=== PATIENT | female | born 1950 | race Caucasian/White ===

== ENCOUNTER 2016-05-14 05:14 | Inpatient (IN) | payer OTHER ==
--- NOTE | 2016-04-22 13:50 | PAT Medication Instructions ---
Service Date Apr 22, 2016. Current Home Medication List Aspirin (Aspirin Ec), 81 MG PO BID Cholecalciferol (Vitamin D3), 1 TAB PO QAM Hydrocodone/Acetaminophen 7.5MG/325MG ([place] 7.5MG/325MG), 1 TAB PO Q8 PRN for Pain Lorazepam (Ativan), 1 MG PO TID PRN Multivitamin (Multivitamin), 1 TAB PO QAM Prednisone (Prednisone), 20 MG PO UD Sumatriptan Succinate (Imitrex), 100 MG PO PRN Medication Instructions For Your Scheduled Surgery - Check surgeon's instructions: Aspirin (Aspirin Ec), 81 MG PO BID - Hold the following medications the morning of surgery: Multivitamin (Multivitamin), 1 TAB PO QAM Cholecalciferol (Vitamin D3), 1 TAB PO QAM - Take the following medications the morning of surgery with a sip of water OTHERWISE NOTHING TO EAT OR DRINK AFTER MIDNIGHT: Prednisone (Prednisone), 20 MG PO UD NEEDED Sumatriptan Succinate (Imitrex), 100 MG PO NEEDED Lorazepam (Ativan), 1 MG PO TID NEEDED Hydrocodone/Acetaminophen 7.5MG/325MG ([place] 7.5MG/325MG), 1 TAB PO Q8 PRN for Pain (may take if needed up to 4 hours prior to surgery) - Take the following medications as scheduled the night before surgery: Lorazepam (Ativan), 1 MG PO TID PRN NEEDED If you have any questions please call us at [phone] (Anastasiya Nunez PA-C ) or [phone] or [phone]
[2016-04-22 14:40] LABS: PROTHROMBIN TIME (PATIENT) 10.6 SECONDS (9.0-12.0)
--- NOTE | 2016-04-22 14:41 | DIAGNOSTIC IMAGING REPORT ---
CHEST 2 VIEWS ROUTINE HISTORY: Preop. COMPARISON: Chest 11/10/2012. FINDINGS: The lungs are clear. Cardiac silhouette is normal in size. No pleural effusions. No pneumothorax. IMPRESSION: No acute process. Electronically signed by: Woody Fox M.D. 04/22/2016 2:40 PM
[2016-04-22 14:59] LABS: MANUAL MICROSCOPIC REQUIRED? NO; REVIEW REQ? NO; URINE APPEARANCE CLEAR (CLEAR); URINE BILIRUBIN NEG (NEG); URINE COLOR YELLOW; URINE EPITHELIAL CELL AUTO >30 /lpf (0-5); URINE NITRITE NEG (NEG); URINE PH 5.5 (4.5-7.5); UROBILINOGEN NEG (NEG); ZZUR CULT IF INDIC CLEAN CATCH NO
--- NOTE | 2016-05-11 10:00 | HISTORY & PHYSICAL EXAMINATION ---
DATE OF ADMISSION: 05/14/2016 CHIEF COMPLAINT: Painful bicompartmental knee replacement. HISTORY OF PRESENT ILLNESS: Ms. Varela is a 65-year-old female who had a bicompartmental knee replacement in 2010. The patient has been having increased pain in the knee over the last 2 years. Recent bone scan is positive for loosening of her components. She has been taking Advil and has had injections without relief. She has failed conservative treatment and is now scheduled for conversion to total knee arthroplasty. PAST MEDICAL HISTORY: Negative. She denies heart disease, diabetes or DVT. PAST SURGICAL HISTORY: Left bicompartmental knee replacement. SOCIAL HISTORY: The patient denies alcohol or tobacco use. She lives in a single story home. She is and works part-time at [employer]. FAMILY HISTORY: Negative for DVT. MEDICATIONS: Imitrex 100 mg p.r.n., lorazepam 1 mg p.r.n., prednisone 20 mg p.r.n., hydrocodone 7.5/325, multivitamin and vitamin D3. ALLERGIES: None. REVIEW OF SYSTEMS: See HPI. Ten other systems reviewed, all negative. PHYSICAL EXAMINATION: VITAL SIGNS: Height 4 foot 11, weight 152 pounds, BMI 31. GENERAL: This is a well-developed, well-nourished female who is alert and oriented x3. Mood and affect are appropriate. HEAD, EYES, EARS, NOSE, AND THROAT: Normocephalic, atraumatic. Mucous membranes are moist and intact. NECK: Supple without lymphadenopathy. HEART: Regular rate and rhythm without murmurs, rubs or gallops. LUNGS: Clear to auscultation without wheezes or rhonchi. ABDOMEN: Soft and nontender. Bowel sounds are equal and active. EXTREMITIES: No ecchymosis, redness or warmth. She does have mild effusion. She has a midline incision that is well healed. Range of motion is from 0 to about 115 degrees. She has no instability. She has lateral joint line tenderness. X-RAY EXAMINATION: AP and lateral views show a left bicompartmental knee replacement in adequate position on x-ray. Her components appear to be well fixed. She does have evidence of some lateral compartment disease. IMPRESSION: History of left bicompartmental knee replacement with evidence of lateral compartment disease. PLAN: The patient will be admitted for revision to left total knee arthroplasty with possible stem. Will plan on aspirin for DVT prophylaxis. The patient is planning on outpatient physical therapy a [facility]. Her PCP is Dr. Elyse Mccarthy, [facility].
[2016-05-14] VITALS (9 sets, daily range): BP systolic 112–167; BP diastolic 66–100; PULSE 71–94; TEMP 36.4–36.9; O2SAT 93–99; Ht 152.4 cm; Wt 69.7 kg
[~2016-05-14] VITALS: Ht 152.4 cm; Wt 69.7 kg
[~2016-05-14 05:14] MED LIST: ASPI81TA28 PO; ATV/1 PO; CHOL1000 PO; HYDR-3983 PO; MULT-506 PO; PRED20TA PO; SUMA100T16 PO
[2016-05-14] MEDS ORDERED: OXYCODONE HCL 10 MG TABCR (OXYCONTIN) PO SCH ×2 (06:00)
[2016-05-14] MEDS ORDERED: LACTATED RINGER'S 500 ML IV SCH (06:00)
[2016-05-14] MEDS ORDERED: SCOPOLAMINE 1.5 MG TDSY TD SCH (06:00)
[2016-05-14] MEDS ORDERED: FAMOTIDINE 20 MG TAB PO SCH (06:00)
[2016-05-14] MEDS ORDERED: POLYMYXIN B SULFATE 100,000 UNITS in NSS 100ML IR SCH (06:00)
[2016-05-14] MEDS ORDERED: LACTATED RINGER'S 1000ML IV SCH ×2 (06:00)
[2016-05-14] MEDS ORDERED: GABAPENTIN 300 MG CAP PO SCH (06:00)
[2016-05-14] MEDS ORDERED: VANCOMYCIN INJ 1,050 MG in SODIUM CHLORIDE 0.9% 250ML 250 ML IV SCH (06:00)
[2016-05-14] MEDS ORDERED: VANCOMYCIN INJ 400 MG in NSS 100ML IR SCH (06:00)
[2016-05-14] MEDS ORDERED: METOCLOPRAMIDE HCL 10 MG TAB PO SCH (06:00)
[2016-05-14] MEDS ORDERED: ROPIVACAINE 5MG/ML 30 ML 150 MG, BUPIVACAINE/EPINEPHR 0.5% MPF 30 ML, KETOROLAC TROMETH... INFIL SCH ×7 (06:00)
[2016-05-14] MEDS ORDERED: ACETAMINOPHEN 500 MG TAB PO SCH (06:00)
[2016-05-14] MEDS ORDERED: CeleBREX 200 MG CAP PO SCH (06:00)
[2016-05-14] MEDS ORDERED: CEFAZOLIN 2000 MG/60 ML D5W 60 ML IV SCH (06:00)
[2016-05-14] MEDS ORDERED: DEXAMETHASONE 4 MG TAB PO SCH (06:00)
[2016-05-14] MEDS ORDERED: VANCOMYCIN 1GM/270ML NSS 270 ML IV SCH (06:00)
[2016-05-14] MEDS ORDERED: BUPIVACAINE 0.5 % 5 MG/1 ML PF 10ML VIAL ONE (06:28)
[2016-05-14] MEDS: TRANEXAMIC ACID INJ 1,000 MG in SODIUM CHLORIDE 0.9% 100ML 100 ML IV SCH ×2 (06:30→06:41)
--- NOTE | 2016-05-14 06:37 | History & Physical Bridge Note ---
H&P Re-Evaluation Bridge Note: I have examined the patient, reviewed the History & Physical and in the interval since the performance of the History & Physical I have noted the following changes of clinical significance: No changes noted
[2016-05-14] MEDS ORDERED: FENTANYL CITRATE INJ 50 MCG/1 ML 2 ML VIAL ONE (06:42)
[2016-05-14] MEDS ORDERED: MIDAZOLAM HCL 1 MG/ML 2ML VIAL ONE ×2 (06:42→07:08)
[2016-05-14] MEDS ORDERED: FENTANYL CITRATE INJ 50 MCG/1 ML 2 ML VIAL IV PRN (06:45)
[2016-05-14] MEDS ORDERED: EpHEDrine SULFATE INJ 50 MG/ML AMP IV PRN (06:45)
[2016-05-14] MEDS ORDERED: ATROPINE SULFATE 0.1 MG/ML 5ML SYR IV PRN (06:45)
[2016-05-14] MEDS ORDERED: ONDANSETRON INJ 2 MG/ML 2 ML VIAL IV PRN ×2 (06:45→09:00)
[2016-05-14] MEDS ORDERED: ORTHO JOINT ANESTHETIC ONE (06:47)
[2016-05-14] MEDS ORDERED: LABETALOL HCL IV 5 MG/ML 20ML ONE (07:52)
[2016-05-14] MEDS ORDERED: PROPOFOL IV EMULSION 10 MG/ML 20 ML VIAL IV ONE ×2 (07:52→08:23)
[2016-05-14] MEDS ORDERED: BACITRACIN 50000 UNIT VIAL IR ONE (07:53)
[2016-05-14] MEDS ORDERED: BUPIVACAINE 0.25% W/EPI 1:200,000 INJ ONE (07:57)
--- NOTE | 2016-05-14 08:46 | [facility] Post Operative Brief Note ---
Immediate Operative Summary Operative Date May 14, 2016. Pre-Operative Diagnosis History of Left Bicompartmental Knee Replacement with Evidence of Lateral Compartment Disease Post-Operative Diagnosis History of Left Bicompartmental Knee Replacement with Evidence of Lateral Compartment Disease Procedure(s) Performed Left Knee Total Knee Revision Arthroplasty from Unicompartmental, Injection of Right Knee Surgeon Dr. Bruce Chaudhary Medical Stenographer Surgeon(s) WILL Haley Estimated Blood Loss 50 ml Findings lat disease Specimens A. Removed Hardware Left Knee B. Left Knee Bone and Tissue Complication(s) None Disposition Recovery Room / PACU
[2016-05-14] MEDS ORDERED: POVIDONE-IODINE OP SOLN 30 ML BTL TOP ONE (08:48)
[2016-05-14] MEDS ORDERED: METHYLPREDNISOLONE (DEPO-MEDROL) 80MG INJ ONE (08:53)
[2016-05-14] MEDS ORDERED: LIDOCAINE HCL 1% MPF 5 ML VIAL INJ ONE (08:58)
[2016-05-14] MEDS: ASPIRIN 81 MG ECTAB PO SCH ×2 (09:00→20:28)
[2016-05-14] MEDS ORDERED: OXYCODONE HCL IR 5 MG TAB (IMMEDIATE RELEASE) PO PRN (09:00)
[2016-05-14] MEDS ORDERED: DiphenhydrAMINE HCL 50 MG/ML VIAL IV PRN (09:00)
[2016-05-14] MEDS: MULTIVITAMIN TAB PO SCH (09:00)
[2016-05-14] MEDS ORDERED: LORAZEPAM 1 MG TAB PO PRN (09:00)
[2016-05-14] MEDS: CHOLECALCIFEROL 1000 INTER.UNIT TAB PO SCH (09:00)
[2016-05-14] MEDS ORDERED: ALUMINUM/MAGNESIUM/SIMETH (MAALOX MAX) 30 ML UDC PO PRN (09:00)
[2016-05-14] MEDS ORDERED: SOD PHOSPHATE/SOD BIPHOSPHATE ENEMA 132 ML BTL PR PRN (09:00)
[2016-05-14] MEDS ORDERED: ZOLPIDEM TARTRATE 5 MG TAB PO PRN (09:00)
[2016-05-14] MEDS ORDERED: METOCLOPRAMIDE HCL INJ 5 MG/ML 2 ML VIAL IV PRN (09:00)
[2016-05-14] MEDS ORDERED: MAGNESIUM HYDROXIDE SUSP 30 ML UDC PO PRN (09:00)
[2016-05-14] MEDS: PANTOprazole SOD 40 MG TAB PO SCH (09:00)
[2016-05-14] MEDS ORDERED: TRAMADOL HCL 50 MG TAB PO PRN (09:00)
[2016-05-14] MEDS ORDERED: MoRPHine SULFATE 2 MG/ML CARP IV PRN (09:00)
[2016-05-14] MEDS ORDERED: BISACODYL 10 MG SUPP PR PRN (09:00)
[2016-05-14] MEDS ORDERED: SUMATRIPTAN SUCC TAB 100 MG TAB PO PRN (09:00)
--- NOTE | 2016-05-14 09:59 | DIAGNOSTIC IMAGING REPORT ---
LEFT KNEE 1 OR 2 VIEWS ROUTINE CLINICAL HISTORY: Postop left knee arthroplasty COMPARISON: None. DISCUSSION: There are postsurgical changes of a total left knee arthroplasty and patellar resurfacing. Overlying surgical drains are evident. The femoral and tibial components appear well seated. There is granular opaque debris within the anterior soft tissues. IMPRESSION: Postsurgical changes of a total left knee arthroplasty. Electronically signed by: Portillo Huggins M.D. 05/14/2016 9:58 AM Dictated Date/Time: 05/14/2016 9:57 AM
--- NOTE | 2016-05-14 10:13 | Anesthesiology Progress Note ---
Anesthesia Post Op Note Date & Time May 14, 2016 at 10:12 Vital Signs Pain Intensity: 0 Vital Signs Past 12 Hours Date Time Temp Pulse Resp B/P Pulse Ox O2 Delivery O2 Flow Rate FiO2 05/14/16 10:00 36.4 74 14 135/75 98 Nasal Cannula 2 05/14/16 09:45 71 13 143/83 98 Nasal Cannula 2 05/14/16 09:35 65 13 128/78 98 Nasal Cannula 2 05/14/16 09:25 69 21 128/70 99 Nasal Cannula 2 05/14/16 09:15 36.2 62 12 132/92 98 Nasal Cannula 2 05/14/16 06:03 36.7 71 16 167/100 99 Room Air Notes Mental Status: alert / awake / arousable, participated in evaluation Pt Amnestic to Procedure: Yes Nausea / Vomiting: adequately controlled Pain: adequately controlled Airway Patency, RR, SpO2: stable & adequate BP & HR: stable & adequate Hydration State: stable & adequate Neuraxial Anesthesia: was administered, sensory block is resolving Anesthetic Complications: no major complications apparent
--- NOTE | 2016-05-14 12:32 | OPERATIVE REPORT ---
DATE OF OPERATION: 05/14/2016 PREOPERATIVE DIAGNOSES: 1. Painful left bicompartmental total knee replacement. 2. Degenerative arthritis of the right knee. PROCEDURES: 1. Left revision knee replacement. 2. Intra-articular injection, right knee. SURGEON: Manny Chaudhary MD FOOD SERVICE TEAM MEMBER: WILL Haley ANESTHESIA: Spinal. BLOOD LOSS: 50 mL. TOURNIQUET TIME: 20 minutes at 250 mmHg. DRAINS: Hemovac x2. CULTURES: None. COMPLICATIONS: None. COMPONENTS USED: [employer]hew Journey Knee System: Femur size 3, tibia size 3 x 13. NOTE: WILL Haley was present and assisted throughout due to the complicated nature of this case. She helped with preparation and set up, first assisted throughout, and personally closed the capsule, subcutaneous and skin layers and applied the postoperative dressing. INDICATION FOR PROCEDURE: This patient is a 65-year-old woman who is about 6-7 years status post uncomplicated bicompartmental knee replacement. She had done well, but had developed lateral compartment disease and also some tibial pain. A bone scan suggested loosening of tibial component. She has tried injections without relief. Preoperative workup including aspiration was negative and inflammatory markers were negative. DESCRIPTION OF PROCEDURE: Following satisfactory spinal, the patient was supine. A tourniquet was placed on the left lower extremity. The left lower extremity was prepared with ChloraPrep and draped sterilely. The tourniquet was not inflated. A surgical timeout was performed. Using the old midline knee incision, a midline incision was made with a median parapatellar arthrotomy. Hemostasis was controlled using the Aquamantys system. The knee showed a moderate amount of fluid. There was grade 3-4 changes of the lateral compartment. The components did not appear to be loose and the patella tracked well. The femoral component was removed using the ultrasonic cement removal system with essentially no bone loss. The IM 5-degree valgus cut was then used to trim and shape the femur. The femur was sized and prepared for a size 3 posterior stabilized femoral component. There was very good preservation of bone and it was decided that no stem placement would be necessary. Attention was turned to the tibia. Using the extramedullary cutting guide, the tibia was resected with approximately 3-degrees posterior slope and 90-degrees mediolateral resection. There was minimal residual tibial medial bone loss. Tibial trial component was placed. Soft tissue balancing was completed in flexion and extension. The patella appeared to be in very good shape. There was no loosening and it did not require any other treatment. The trial reduction with the above-mentioned components showed full extension and flexion to more than 120 degrees with very good medial collateral lateral stability and the patella tracked well. The tourniquet was inflated for better cement technique. The trial components were removed. The capsule was prepared with the orthopedic cocktail and after irrigation, the components were cemented using Simplex G cement. Betadine soak was performed. When the cement had hardened, the Betadine was irrigated and the tourniquet was deflated. The wound was irrigated copiously. Two drains were placed. The arthrotomy was closed with a running suture of 0 V-Loc and reinforced in multiple sites with #1 Vicryl. Subcutaneous tissues were closed with 2-0 Vicryl. The skin was closed with a running subcuticular stitch of 3-0 V-Loc. Dermabond and a dry dressing was applied. A second time-out was then performed. The right knee was injected in the inferomedial portal after Betadine and alcohol preparation using 80 mg of Depo-Medrol and 4 mL of 1% lidocaine. A dry dressing was applied. The patient was returned to her bed having tolerated the procedure in good condition. I attest to the content of the Intraoperative Record and any orders documented therein. Any exceptio ns are noted below.
[2016-05-14] MEDS: ACETAMINOPHEN 500 MG TAB PO SCH ×2 (13:21→20:28)
[2016-05-14] MEDS: KETOROLAC TROMETHAMINE 30 MG/ML VIAL IV. SCH ×3 (13:21→23:37)
[2016-05-14] MEDS: D5W AND 1/2NSS + 20MEQ KCL 1,000 ML IV SCH ×2 (13:21→23:36)
[2016-05-14] MEDS: CHECK SCOPOLAMINE PATCH PLACEMENT SCH ×2 (16:00→23:37)
[2016-05-14] MEDS ORDERED: TRANEXAMIC ACID INJ 1,000 MG in SODIUM CHLORIDE 0.9% 100ML 100 ML IV SCH (16:00)
[2016-05-14] MEDS: CEFAZOLIN IV 2,000 MG in DEXTROSE 5% 50ML 50 ML IV SCH ×2 (18:07→23:36)
[2016-05-14] MEDS: OXYCODONE HCL 10 MG TABCR (OXYCONTIN) PO SCH (20:30)
[2016-05-14] MEDS ORDERED: SENNA 8.6 MG TAB PO SCH (21:00)
[2016-05-15 03:05] VITALS: BP 131/77; PULSE 69; TEMP 36.7; O2SAT 97
[2016-05-15] MEDS: ACETAMINOPHEN 500 MG TAB PO SCH (05:56)
[2016-05-15] MEDS: KETOROLAC TROMETHAMINE 30 MG/ML VIAL IV. SCH (05:57)
[2016-05-15] MEDS ORDERED: LACTATED RINGER'S 500 ML IV SCH (06:00)
--- NOTE | 2016-05-15 07:32 | Orthopedic Progress Note ---
Orthopedic Progress Note Date of Service May 15, 2016. Subjective Post OP Day: 1 Reports: feeling well, pain controlled w PO medications, Denies: SOB, chest pain , complaints, light headedness, nausea / vomiting Objective calves soft nontender, N/V intact, dressing C/D/I, A&O x3, toes mobile, hemovac drainage (225 LAST SHIFT ) Date Time Temp Pulse Resp B/P Pulse Ox O2 Delivery O2 Flow Rate FiO2 05/15/16 03:05 36.7 69 18 131/77 97 Room Air 05/14/16 23:28 36.7 77 16 117/70 93 Room Air 05/14/16 20:00 Room Air 05/14/16 19:39 36.9 87 17 116/73 94 Room Air 05/14/16 15:56 36.9 94 17 114/76 96 Room Air 05/14/16 13:13 36.9 85 16 119/72 97 Room Air 05/14/16 12:10 36.4 83 16 112/66 96 Nasal Cannula 2.0 05/14/16 11:07 74 16 124/74 98 Room Air 05/14/16 10:40 72 16 128/77 96 05/14/16 10:10 97 Room Air 05/14/16 10:10 36.4 74 16 139/80 97 Room Air 05/14/16 10:10 Room Air 05/14/16 10:00 36.4 74 14 135/75 98 Nasal Cannula 2 05/14/16 09:45 71 13 143/83 98 Nasal Cannula 2 05/14/16 09:35 65 13 128/78 98 Nasal Cannula 2 05/14/16 09:25 69 21 128/70 99 Nasal Cannula 2 05/14/16 09:15 36.2 62 12 132/92 98 Nasal Cannula 2 Laboratory Results 24 Hours: Test 05/15/16 04:44 Assessment & Plan Assessment: POD 1 L REVISION TKA Plan: DC TODAY LEAVE DRAIN IN PLACE OPPT WILL DC DRAIN TOMORROW Inhouse Planning Pain Management: Celebrex, Oxycontin, PO Tylenol, Oxy IR DVT Prophylaxis: TEDs, SCDs, ASA Discharge Planning Discharge Planning: home with oppt Pain Management: Celebrex, Oxycontin, PO Tylenol, Oxy IR DVT Prophylaxis: TEDs, ASA
[2016-05-15 07:36] LABS: HEMATOCRIT 34.1 % (37-47); MEAN CELL VOLUME 85.7 fL (80-100); MEAN CORPUSCULAR HEMOGLOBIN 28.6 pg (25-34); MEAN CORPUSCULAR HGB CONC 33.4 g/dl (32-36); MEAN PLATELET VOLUME 10.8 fL (7.4-10.4); PLATELET COUNT 205 K/uL (130-400); RED BLOOD COUNT 3.98 M/uL (4.2-5.4); WHITE BLOOD COUNT 12.76 K/uL (4.8-10.8)
[2016-05-15 07:59] VITALS: BP 127/78; PULSE 60; TEMP 36.6; O2SAT 95
[2016-05-15 08:04] LABS: BUN/CREATININE RATIO 14.8 (10-20); CALCIUM 8.7 mg/dl (8.5-10.1); CREATININE 0.85 mg/dl (0.60-1.20); POTASSIUM 4.7 mmol/L (3.5-5.1)
[2016-05-15 08:10] VITALS: O2SAT 95
[2016-05-15] MEDS: D5W AND 1/2NSS + 20MEQ KCL 1,000 ML IV SCH (08:23)
[2016-05-15] MEDS: CHECK SCOPOLAMINE PATCH PLACEMENT SCH (08:24)
[2016-05-15] MEDS: ASPIRIN 81 MG ECTAB PO SCH (08:27)
[2016-05-15] MEDS: PANTOprazole SOD 40 MG TAB PO SCH (08:28)
[2016-05-15] MEDS: MULTIVITAMIN TAB PO SCH (08:28)
[2016-05-15] MEDS: CHOLECALCIFEROL 1000 INTER.UNIT TAB PO SCH (08:29)
[2016-05-15] MEDS: OXYCODONE HCL 10 MG TABCR (OXYCONTIN) PO SCH (08:32)
[2016-05-15] MEDS ORDERED: MORP15TA19 PO (09:08)
[2016-05-15] MEDS ORDERED: ASPEC81 PO (09:08)
[2016-05-15] MEDS ORDERED: RXC5 PO (09:08)
[2016-05-15] MEDS ORDERED: CLB200 PO (09:08)
[2016-05-15] MEDS ORDERED: ACET-1138 PO (09:08)
[2016-05-15] MEDS ORDERED: ONDA8TAB6 PO (09:08)
--- NOTE | 2016-05-15 09:14 | Discharge Instructions ---
Discharge Instructions Admission Reason for Admission: Left Knee Complications W/Internal Joint Prosthesi Discharge Discharge Diagnosis / Problem: Left knee complications with TKA Discharge Goals Goal(s): Decrease discomfort, Improve function Activity Recommendations Activity Limitations: as noted below Lifting Limitations: until after follow-up appointment Exercise/Sports Limitations: until after follow-up appointment May Resume Sexual Activity: when tolerated Shower/Bathe: no limitations (May shower and keep dressing in place.) Driving or Machine Use: When cleared with Dr. Chaudhary's clinic. Weightbearing Status: Left weightbearing (as tolerated) . Instructions / Follow-Up Instructions / Follow-Up ACTIVITY RECOMMENDATIONS: SELF CARE INSTRUCTIONS AFTER TOTAL KNEE REPLACEMENT A. You may need to continue a physical therapy program after discharge from the hospital. There are several options available to you. Your doctor will assist you in selecting the best one for you. 1. An out-patient facility 3 times a week for therapy. 2. Home therapy for 1 to 2 weeks with outpatient therapy to follow. 3. Continue working on all exercises taught by physical therapy three times a day for 20 minutes on non-therapy days. Your goals should be to increase the bending of your knee to 90 degrees and beyond and to fully straighten your knee. Ice and elevate knee after exercise. B. Weight as tolerated with a walker or as instructed by your physician. C. It is okay to shower if minimal to no drainage from incision. No Baths. Do not soak wound. D. Make walking a part of your daily routine. Be up as much as comfortable with rest periods throughout the day. Rest with leg elevation is very important. Use the ice wrap frequently for the first 3-4 weeks. E. There are no restrictions on activities. You may ride in a car, shop, participate in pharmacist aide and all social activities. F. Wear the long elastic stockings (VIKTOR hose) 20 hours a day for one month after surgery. They can be removed several times a day for laundering and when showering. G. DERMABOND Prineo- This is a mesh tape dressing that is covered with glue. It should remain in place until the incision is properly healed, usually 10-14 days. This dressing is designed to naturally slough off. You may trim the excess mesh tape as it peels off. Incision may be briefly wet in a shower. Dry immediately by blotting with a clean, dry towel. Do not bath or swim until instructed by your doctor. Do not scratch, rub, or pick at the dressing. Do not apply any topical ointments or lotions until dressing is completely removed and/or instructed by your doctor. There may be a small piece of suture material at one end of your incision. Do not pull or trim this. If it is bothersome or catching on clothing, you may cover it with a band-aid. H. Your hemovac drain will stay in place and be removed tomorrow at home. SPECIAL CARE INSTRUCTIONS: VERY IMPORTANT TO READ AND REVIEW A. Take Coumadin, Xarelto, Aspirin or Lovenox (blood thinning medications) as directed by your doctor. If on Coumadin, have a pro-time (blood test) drawn according to your doctor's instructions. This will tell the doctor how well the Coumadin is thinning your blood. B. There are a few signs you need to watch for after you are home. Call [facility] if you notice any of the followin. Increased severe knee pain. Some pain is expected especially when you exercise. 2. Increased swelling in your leg or knee; pain or swelling of the calf muscle in either lower leg. 3. Any redness or fluid drainage from the incision. 4. Shortness of breath or chest pain. 5. A Temperature of 101 degrees F or greater. C. Please call [facility] at if you have any concerns or questions about your operation or recovery. The doctor or his nurse will return your call promptly. D. You must take antibiotics before dental work, bladder, bowel or other surgery. Your doctor will provide you with a permanent care to carry describing this precaution. FOLLOW UP VISIT: If appointment is not already scheduled: Please call [facility] to make a follow-up appointment for one month after your surgery at . Current Hospital Diet Patient's current hospital diet: Regular Diet Discharge Diet Recommended Diet: Regular Diet Procedures Procedures Performed: Left Knee Total Knee Revision Arthroplasty from Unicompartmental, Injection of Right Knee Pending Studies Studies pending at discharge: no Laboratory Results Lipid Panel Test 04/22/16 13:58 Range/Units Triglycerides Level 186 H 0-150 mg/dl Cholesterol Level 206 H 0-200 mg/dl HDL Cholesterol 64 mg/dl Cholesterol/HDL Ratio 3.2 LDL Cholesterol, Calculated 105 mg/dl Medical Emergencies . Who to Call and When: Medical Emergencies: If at any time you feel your situation is an emergency, please call 911 immediately. . Non-Emergent Contact Non-Emergency issues call your: Surgeon Call Non-Emergent contact if: temperature is above 101, your pain is not controlled, your pain is worsening, wound has increased drainage, wound has increased redness, wound has increased pain . "Provider Documentation" section prepared by Corey Amos. VTE Core Measure Inpt VTE Proph given/why not?: Other Anticoagulation (Aspirin 81 mg by mouth every 12 hours), T.E.D. Stockings
[2016-05-15 12:32] VITALS: BP 125/85; PULSE 64; TEMP 36.5; O2SAT 97
[2016-05-15 13:49] VITALS: BP 125/85; PULSE 64; TEMP 36.5; O2SAT 97
[2016-05-16] MEDS ORDERED: CeleBREX 200 MG CAP PO SCH (21:00)
--- NOTE | 2016-05-17 09:57 | DISCHARGE SUMMARY ---
DISCHARGE DIAGNOSIS: Painful left bicompartmental knee replacement. SECONDARY DIAGNOSES: None. CONSULTS: None. COMPLICATIONS: None. PROCEDURE: The patient underwent revision left total knee arthroplasty to primary knee replacement with Dr. Chaudhary on 05/14/2016. BRIEF HISTORY: Please see previously dictated history and physical. HOSPITAL SUMMARY: The patient was admitted on the above day for the above procedure. Procedure went without complication. Postop day 1, the patient was feeling well without complaints. She denied chest pain or shortness of breath. Vital signs were stable. She was afebrile. Dressing was clean, dry and intact. She was neurovascularly intact. Calves were soft and nontender. Hemovac drained 225 mL. Hemoglobin was 11.4. The patient began physical therapy per protocol. She was discharged to home later that day in stable condition. For further review please see the chart. Lab, x-ray data and discharge instructions as per chart.
[2016-10-14] MEDS ORDERED: ACET-1256 PO (09:57)
[2016-10-14] MEDS ORDERED: TURM500T PO (10:46)
[2016-10-14] MEDS ORDERED: OMEG10007 PO (10:46)
[2016-10-14] MEDS ORDERED: MELO15TA4 PO (10:46)
== END 2016-05-15 14:40 | disposition home or self-care (01) | DRG 468 ==
LOC: ENRESERVTM → ENRESERVDT → C.ACU 05:14 → C.3E 08:51
PROVIDERS: ADMIT Orthopaedic Surgery; ATTEND Orthopaedic Surgery
PROC: 3E0U33Z Introduction of Anti-inflammatory into Joints, Percutaneous Approach (ICD-10-PCS; principal; 2016-05-14 07:00)
PROC: 0SPD0JZ Removal of Synthetic Substitute from Left Knee Joint, Open Approach (ICD-10-PCS; principal; 2016-05-14 07:00)
PROC: 0SRD0J9 Replacement of Left Knee Joint with Synthetic Substitute, Cemented, Open Approach (ICD-10-PCS; principal; 2016-05-14 07:00)
DX: T84.033A Mechanical loosening of internal left knee prosthetic joint, initial encounter (principal); M17.11 Unilateral primary osteoarthritis, right knee; Z96.652 Presence of left artificial knee joint; Y83.1 Surgical operation with implant of artificial internal device as the cause of abnormal reaction of the patient, or of later complication, without mention of misadventure at the time of the procedure

== ENCOUNTER → 2016-06-03 | Outpatient (CLI) | payer OTHER ==
[~2016-06-03] MED LIST changes: +ACET-1138 PO; +ACET-1256 PO; +ACET-24 PO; +ASPEC81 PO; -ASPI81TA28 PO; +CLB200 PO; -HYDR-3983 PO; +HYDR-4079 PO; +HYDR-5688 PO; +MELO15TA4 PO; +MORP-157 PO; +MORP15TA19 PO; +OMEG10007 PO; +ONDA8TAB6 PO; +RXC5 PO; +SNK PO; +TURM500T PO
[2016-06-03 11:46] LABS: BASO % 0.1 %; BASO ABS # 0.01 K/uL (0-0.2); COMPLETE YES; EOS % 0.6 %; HEMATOCRIT 37.2 % (37-47); IG% 0.4 %; LYMPH % 17.6 %; LYMPH ABS # 1.47 K/uL (1.2-3.4); MEAN CELL VOLUME 86.3 fL (80-100); MEAN CORPUSCULAR HEMOGLOBIN 28.8 pg (25-34); MEAN CORPUSCULAR HGB CONC 33.3 g/dl (32-36); MEAN PLATELET VOLUME 9.7 fL (7.4-10.4); MONO % 4.4 %; NEUT % 76.9 %; PLATELET COUNT 325 K/uL (130-400); RED BLOOD COUNT 4.31 M/uL (4.2-5.4); WHITE BLOOD COUNT 8.34 K/uL (4.8-10.8)
== END | disposition home or self-care (01) ==
LOC: C.LAB 09:55
PROVIDERS: ATTEND Orthopaedic Surgery Sports Medicine
DX: Z47.1 Aftercare following joint replacement surgery (principal)

== ENCOUNTER → 2016-06-22 | Outpatient (CLI) | payer OTHER | END | disposition home or self-care (01) | LOC: C.PATHSPEC 13:50 | PROVIDERS: ATTEND Dermatology | DX: D36.14 Benign neoplasm of peripheral nerves and autonomic nervous system of thorax (principal); L91.8 Other hypertrophic disorders of the skin; L82.1 Other seborrheic keratosis ==

== ENCOUNTER → 2016-08-26 | Outpatient (CLI) | payer OTHER ==
[~2016-08-26] MED LIST changes: +NF656 TD; +TRAM-10 PO
== END | disposition home or self-care (01) ==
LOC: C.PATHSPEC 17:43
PROVIDERS: ATTEND Dermatology
DX: L81.4 Other melanin hyperpigmentation (principal); L91.8 Other hypertrophic disorders of the skin

== ENCOUNTER 2016-11-17 07:19 | Inpatient (IN) | payer OTHER ==
--- NOTE | 2016-10-14 10:23 | PAT Medication Instructions ---
Service Date Oct 14, 2016. Current Home Medication List Acetaminophen (Tylenol), 1,000 MG PO Q8 PRN for Pain Cholecalciferol (Vitamin D3), 1 TAB PO QAM Lorazepam (Ativan), 1 MG PO TID PRN Multivitamin (Multivitamin), 1 TAB PO QAM Prednisone (Prednisone), 20 MG PO UD Sumatriptan Succinate (Imitrex), 100 MG PO PRN Medication Instructions For Your Scheduled Surgery - Hold the following medications 2 weeks prior to surgery: Fish Oil Turmeric [place] 3 - Hold the following medications the morning of surgery: Multivitamin (Multivitamin), 1 TAB PO QAM Cholecalciferol (Vitamin D3), 1 TAB PO QAM Meloxicam (otherwise okay to continue per surgeon) - Take the following medications the morning of surgery with a sip of water OTHERWISE NOTHING TO EAT OR DRINK AFTER MIDNIGHT: Lorazepam (Ativan), 1 MG PO TID PRN ( NEEDED) Prednisone (Prednisone), 20 MG PO UD ( NEEDED) Sumatriptan Succinate (Imitrex), 100 MG PO PRN ( NEEDED) - Take the following medications as scheduled the night before surgery: Lorazepam (Ativan), 1 MG PO TID PRN Prednisone (Prednisone), 20 MG PO UD Sumatriptan Succinate (Imitrex), 100 MG PO PRN Nothing to eat or drink after midnight If you have any questions please call us at [phone] or [phone] or [phone]
[2016-10-14 11:09] LABS: COMPLETE YES; EOS % 3.2 %; HEMATOCRIT 43.7 % (37-47); IG% 0.3 %; LYMPH % 33.3 %; LYMPH ABS # 1.24 K/uL (1.2-3.4); MEAN CELL VOLUME 83.6 fL (80-100); MEAN CORPUSCULAR HEMOGLOBIN 27.2 pg (25-34); MEAN CORPUSCULAR HGB CONC 32.5 g/dl (32-36); MONO % 6.2 %; PLATELET COUNT 222 K/uL (130-400); RED BLOOD COUNT 5.23 M/uL (4.2-5.4); WHITE BLOOD COUNT 3.72 K/uL (4.8-10.8)
[2016-10-14 11:12] LABS: BUN/CREATININE RATIO 21.6 (10-20); CALCIUM 8.7 mg/dl (8.5-10.1); CREATININE 0.65 mg/dl (0.60-1.20)
[2016-10-14 11:21] LABS: PROTHROMBIN TIME (PATIENT) 10.3 SECONDS (9.0-12.0)
[2016-10-14 11:24] LABS: URINE APPEARANCE CLEAR (CLEAR); URINE BILIRUBIN NEG (NEG); URINE COLOR YELLOW; URINE NITRITE NEG (NEG); URINE PH 5.5 (4.5-7.5); UROBILINOGEN NEG (NEG); ZZUR CULT IF INDIC CLEAN CATCH NO
[2016-10-14 11:31] LABS: MANUAL MICROSCOPIC REQUIRED? NO; REVIEW REQ? NO
[2016-10-14 12:58] LABS: ESTIMATED AVERAGE GLUCOSE 120 mg/dl; HA1C FLAG Normal (Normal)
--- NOTE | 2016-11-09 16:20 | History and Physical ---
History & Physical Date Nov 09, 2016. Chief Complaint Right knee pain History of Present Illness The patient is a 66 year old female with complaints of right knee pain for several years. Patient rates her pain a 9/10. Patient has failed injections, PT , and NSAIDS. She has pain with daily activities, she has limited standing and walking tolerance. Pain is worse with weight bearing. Patient has failed conservative treatment and is scheduled for right TKA. Past Medical/Surgical History Surgical Problems: (1) Post-operative state Additional History Hepatic Disease: No Endocrine Disorder: No Kidney Disease: No Hypertension: No Heart Disease: No Bleeding Tendencies: No Infectious Diseases: No Other: DENIES CAD, DM, DVT. Allergies Coded Allergies: Escitalopram (Verified Allergy, Intermediate, icthy, 10/14/16) Oxycodone (Verified Allergy, Intermediate, GI SYMPTOMS, 10/14/16) Codeine (Verified Adverse Reaction, Intermediate, N/V, 10/14/16) Home Medications Scheduled Cholecalciferol (Vitamin D3), 2 TAB PO QAM Fish Oil ([place]-3), 2 CAP PO DAILY Fish Oil ([place]-3), 2 CAP PO DAILY Lorazepam (Ativan), 1-2 TAB PO TID Meloxicam (Meloxicam), 1 TAB PO daily Multivitamin (Multivitamin), 2 TAB PO QAM Prednisone (Prednisone), 20 MG PO UD Sumatriptan Succinate (Imitrex), 100 MG PO PRN Turmeric (Curcuma [place]) (Turmeric), 2 TAB PO DAILY Physical Examination Skin: warm/dry, no rash Eyes: normal inspection, EOMI, sclerae normal ENT: normal ENT inspection, pharynx normal Head: normocephalic, atraumatic Neck: supple, no adenopathy, trachea midline Respiratory/Chest: lungs clear, normal breath sounds, no respiratory distress Cardiovascular: regular rate, rhythm, no edema, no murmur Abdomen / GI: normal bowel sounds, non tender Back: normal inspection Extremities: normal inspection, normal range of motion, + pertinent finding ( MILD EFFUSION. ROM 0-115, +1 LAXITY, NEUTRAL ALLIGNMENT.) Neurologic/Psych: no motor/sensory deficits, alert, normal reflexes, oriented x 3 Diagnosis DJD RIGHT KNEE Plan of Treatment PATIENT WILL BE ADMITTED FOR RIGHT TKA WITH DR. VALADEZ.
--- NOTE | 2016-11-16 11:57 | History and Physical ---
History & Physical Date Nov 16, 2016. 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 for right total knee arthroplasty she's failed attempts at previous conservative management including injections viscus of rotations corticosteroid injections relative rest activity modification bracing and physical therapy after thorough discussion regarding outpatient patient wants to proceed with right total knee arthroplasty History of Present Illness The patient is a 66 year old female with complaints of Past Medical/Surgical History Surgical Problems: (1) Post-operative state Additional History Hepatic Disease: No Endocrine Disorder: No Kidney Disease: No Hypertension: No Heart Disease: No Bleeding Tendencies: No Infectious Diseases: No Allergies Coded Allergies: Escitalopram (Verified Allergy, Intermediate, icthy, 10/14/16) Oxycodone (Verified Allergy, Intermediate, GI SYMPTOMS, 10/14/16) Codeine (Verified Adverse Reaction, Intermediate, N/V, 10/14/16) Home Medications Scheduled Cholecalciferol (Vitamin D3), 2 TAB PO QAM Fish Oil ([place]-3), 2 CAP PO DAILY Fish Oil ([place]-3), 2 CAP PO DAILY Lorazepam (Ativan), 1-2 TAB PO TID Meloxicam (Meloxicam), 1 TAB PO daily Multivitamin (Multivitamin), 2 TAB PO QAM Prednisone (Prednisone), 20 MG PO UD Sumatriptan Succinate (Imitrex), 100 MG PO PRN Turmeric (Curcuma Longa) (Turmeric), 2 TAB PO DAILY Physical Examination Extremities: + pertinent finding (varus alignment with medial compartment patellofemoral compartment DJD subchondral cystic changes sclerosus patellofemoral crepitation medial joint line Rula and circumduction findings as well as joint space narrowing) Addiitonal Comments: Patient is failed attempts at conservative management presents for right total knee arthroplasty Diagnosis X-rays a trimalleolar milligrams joint disease right knee with subchondral sclerosis and joint space narrowing Plan of Treatment [employer] patient-matched total knee arthroplasty with postoperative pain management DVT prophylaxis antibiotics as protocol
[~2016-11-17] VITALS: Ht 152.4 cm; Wt 70.3 kg
[2016-11-17] VITALS (8 sets, daily range): BP systolic 111–168; BP diastolic 77–89; PULSE 68–96; TEMP 36.6–36.8; O2SAT 96–98; Ht 152.4 cm; Wt 70.3 kg
[~2016-11-17 07:19] MED LIST changes: -ACET-1138 PO; -ACET-1256 PO; -ACET-24 PO; +ACETAMINOPHEN 500 MG TAB PO SCH; -ASPEC81 PO; +BUPIVACAINE 0.5 % 5 MG/1 ML PF 10ML VIAL ONE; +CEFAZOLIN 2000 MG/60 ML D5W 60 ML IV SCH; -CLB200 PO; +CeleBREX 200 MG CAP PO SCH; +DEXAMETHASONE 4 MG TAB PO SCH; +FAMOTIDINE 20 MG TAB PO SCH; +GABAPENTIN 300 MG CAP PO SCH; -HYDR-4079 PO; -HYDR-5688 PO; +LACTATED RINGER'S 1000ML 1,000 ML IV SCH; +LACTATED RINGER'S 1000ML 500 ML IV ONE; +METOCLOPRAMIDE HCL 10 MG TAB PO SCH; -MORP-157 PO; -MORP15TA19 PO; -NF656 TD; -ONDA8TAB6 PO; +ROPIVACAINE 5MG/ML 30 ML 150 MG, BUPIVACAINE/EPINEPHR 0.5% MPF 30 ML, KETOROLAC TROMETH... INFIL SCH; -RXC5 PO; -SNK PO; -TRAM-10 PO
[2016-11-17] MEDS ORDERED: HYDR-5688 PO (07:53)
[2016-11-17] MEDS ORDERED: ONDANSETRON INJ 2 MG/ML 2 ML VIAL IV PRN ×2 (08:30→11:30)
[2016-11-17] MEDS ORDERED: EpHEDrine SULFATE INJ 50 MG/ML AMP IV PRN (08:30)
[2016-11-17] MEDS ORDERED: FENTANYL CITRATE INJ 50 MCG/1 ML 2 ML VIAL IV PRN (08:30)
[2016-11-17] MEDS ORDERED: ATROPINE SULFATE 0.1 MG/ML 5ML SYR IV PRN (08:30)
[2016-11-17] MEDS ORDERED: PROPOFOL IV EMULSION 10 MG/ML 20 ML VIAL IV ONE (08:53)
[2016-11-17] MEDS ORDERED: FENTANYL CITRATE INJ 50 MCG/1 ML 2 ML VIAL ONE (08:53)
[2016-11-17] MEDS ORDERED: LIDOCAINE HCL 2% 2 ML VIAL (20MG/ML) ONE (08:53)
[2016-11-17] MEDS ORDERED: POVIDONE-IODINE OP SOLN 30 ML BTL ONE (08:55)
[2016-11-17] MEDS ORDERED: ORTHO JOINT ANESTHETIC ONE (08:55)
[2016-11-17] MEDS ORDERED: BACITRACIN 50000 UNIT VIAL ONE (08:56)
[2016-11-17] MEDS ORDERED: DiphenhydrAMINE HCL 50 MG/ML VIAL ONE (09:01)
[2016-11-17] MEDS: TRANEXAMIC ACID INJ 1,000 MG in SODIUM CHLORIDE 0.9% 100ML 100 ML IV SCH ×2 (09:12→13:30)
[2016-11-17] MEDS ORDERED: MIDAZOLAM HCL 1 MG/ML 2ML VIAL ONE (10:05)
[2016-11-17] MEDS ORDERED: DEXAMETHASONE SOD INJ 4 MG/ML VIAL ONE (10:06)
[2016-11-17] MEDS ORDERED: KETAMINE HCL INJ 50 MG/ML 10 ML VIAL ONE (10:47)
--- NOTE | 2016-11-17 10:55 | [facility] Operative Report ---
Operative Report Operative Date Nov 17, 2016. Pre-Operative Diagnosis Trimalleolar milligrams joint disease right knee with subchondral scleroris and joint space narrowing Post-Operative Diagnosis Same as preoperative diagnosis Procedure(s) Performed Right total knee arthroplasty [facility] journey to patient-matched O neuroplasty size 2 femur to tibia 13 poly-[address] Blue Ferrara H[facility] Surgeon(s) Bryan Carrillo PA-C Estimated Blood Loss 5 mL Findings Patient presents with severe DJD of the right knee enlarged once conservative therapy could improve his arthroscopies in intra-articular injection of corticosteroid injections viscus supplementation as well as anti-inflammatories presents for total knee arthroplasty third discussion regarding risk opticians were performed. Specimens Permanent specimens A: Right knee bone and tissue Complication(s) None Disposition Recovery Room / PACU Indications Patient presents with severe end-stage DJD of the right knee [place] neuroplasty OF Conservative Management. Description of Procedure After proper prepping and draping of the Right lower extremity anterior midline incision was made over the region of the extensor extensor mechanism after meticulous hemostasis was obtained and maintained in subcutaneous tissues a medial parapatellar incision was made The patella was subluxed lateralward the medial lateral gutter were cleaned from any hypertrophic synovitis and scar tissue of the distal femoral block was placed and the distal femoral osteotomy cut was made subsequently the chamfers anterior and posterior osteotomy cuts were made utilizing the 4-in-1 block the tibia was subsequently subluxed anteriorward medial and ateral meniscal remnants were excised in their entirety remnants of the anterior and posterior cruciate ligaments were excised in their entirety excellent exposure of the proximal tibia was obtained the tibial osteotomy guide was placed on the proximal tibial osteotomy cut was made once again the knee was irrigated with copious amounts of sterile saline solution the patella was subsequently everted lateralward thickened scar tissue around the patella was removed the patella was subsequently cut utilizing a freehand technique and was drilled prepared for final preparation and placement of patella socially flexion-extension gaps were checked and the equal and symmetric trials were placed to the appropriate femoral and tibial trials with poly-spacer being placed for equal flexion and extension gaps and full range of motion including extension to 0 and flexion to 140 the trial components after having been taken to recovery range of motion was subsequently removed meticulous hemostasis was obtained and maintained subsequently a knee block injection of joint cocktail including ropivacaine 0.5% 150 mg. Bupivacaine 0.5 % epinephrine 1-200,030 mL's toradol 30 mg dexamethasone 4 mg ketamine 10 mg clonidine 100 micrograms normal saline solution 30 mg was infiltrated into the soft tissues of the posterior knee medial lateral gutters and periosteal synovium special attention was paid to protect neurovascular structures at all times subsequently trial components having been removed the knee was irrigated with sterile saline solution. debris was removed the proximal tibia was subsequently prepared and was made ready for the placement of the tibial component tibial component was also cemented and tamped into position the femoral component was subsequently placed and cemented in the position the patellar component was subsequently cemented in position because hemostasis once again obtained and maintained wound having been thoroughly irrigated with debridement and debridement lavage was performed as well as a medial parapatellar incision closed with #1 Vicryl in interrupted fashion subcutaneous was closed with #2 Vicryl skin was closed with skin clips. PA-C was necessary for prepping and drapping as well as wound closure of deep fascia Sub cutaneous tissue and skin and was necessary for the case. A sterile compressive dressing was placed patient was taken to recovery in stable condition of report dictated by Josias I attest to the content of the Intraoperative Record and any orders documented therein. Any exceptions are noted below. I attest to the content of the Intraoperative Record and any orders documented therein. Any exceptions are noted below.
[2016-11-17] MEDS ORDERED: SUMATRIPTAN SUCC TAB 100 MG TAB PO PRN (11:30)
[2016-11-17] MEDS ORDERED: ZOLPIDEM TARTRATE 5 MG TAB PO PRN (11:30)
[2016-11-17] MEDS ORDERED: BISACODYL 10 MG SUPP PR PRN (11:30)
[2016-11-17] MEDS ORDERED: SOD PHOSPHATE/SOD BIPHOSPHATE ENEMA 132 ML BTL PR PRN (11:30)
[2016-11-17] MEDS ORDERED: ALUMINUM/MAGNESIUM/SIMETH (MAALOX MAX) 30 ML UDC PO PRN (11:30)
[2016-11-17] MEDS ORDERED: MAGNESIUM HYDROXIDE SUSP 30 ML UDC PO PRN (11:30)
[2016-11-17] MEDS ORDERED: OXYCODONE HCL IR 5 MG TAB (IMMEDIATE RELEASE) PO PRN (11:30)
[2016-11-17] MEDS ORDERED: MoRPHine SULFATE 2 MG/ML CARP IV PRN (11:30)
--- NOTE | 2016-11-17 11:56 | DIAGNOSTIC IMAGING REPORT ---
RIGHT KNEE 1 OR 2 VIEWS ROUTINE CLINICAL HISTORY: Postoperative evaluation. COMPARISON: Knee radiographs June 24, 2016. FINDINGS: Alignment of the total right knee arthroplasty is anatomic. There is no fracture or unexpected radiopaque foreign body. Drain is in place. IMPRESSION: Expected findings following total right knee arthroplasty. Electronically signed by: Maurizio Mccarthy M.D. 11/17/2016 11:55 AM Dictated Date/Time: 11/17/2016 11:54 AM
[2016-11-17] MEDS ORDERED: HYDROCODONE/ACETAMI 10/325 TAB PO PRN (12:15)
--- NOTE | 2016-11-17 12:30 | Anesthesiology Progress Note ---
Anesthesia Post Op Note Date & Time Nov 17, 2016 at 12:30 Vital Signs Pain Intensity: 0 Vital Signs Past 12 Hours Date Time Temp Pulse Resp B/P (MAP) Pulse Ox O2 Delivery O2 Flow Rate FiO2 11/17/16 12:15 67 16 106/76 98 Nasal Cannula 2 11/17/16 12:05 36.6 67 16 109/75 98 Nasal Cannula 2 11/17/16 11:55 36.6 74 16 116/71 98 Nasal Cannula 2 11/17/16 11:45 74 16 110/69 98 Nasal Cannula 2 11/17/16 11:35 80 16 116/74 100 Nasal Cannula 2 11/17/16 11:26 36.5 83 16 109/69 100 Nasal Cannula 2 11/17/16 07:50 36.8 74 18 168/86 98 Room Air Notes Mental Status: alert / awake / arousable, participated in evaluation Pt Amnestic to Procedure: Yes Nausea / Vomiting: adequately controlled Pain: adequately controlled Airway Patency, RR, SpO2: stable & adequate BP & HR: stable & adequate Hydration State: stable & adequate Neuraxial Anesthesia: was administered, sensory block is resolving Anesthetic Complications: no major complications apparent
[2016-11-17] MEDS ORDERED: MoRPHine SULFATE 10 MG/ML CARP/VIAL IV PRN (13:15)
[2016-11-17] MEDS ORDERED: MoRPHine SULFATE 4 MG/ML 1 ML CARP\\VIAL IV PRN (13:15)
[2016-11-17] MEDS: D5W AND 1/2NSS + 20MEQ KCL 1,000 ML IV SCH ×2 (13:36→23:18)
[2016-11-17] MEDS: LORAZEPAM 1 MG TAB PO SCH ×2 (13:45→21:09)
[2016-11-17] MEDS: ACETAMINOPHEN 500 MG TAB PO SCH ×2 (13:46→21:10)
[2016-11-17] MEDS ORDERED: SCOPOLAMINE 1.5 MG TDSY TD SCH (14:00)
[2016-11-17] MEDS: CHECK SCOPOLAMINE PATCH PLACEMENT SCH ×2 (16:01→23:18)
[2016-11-17] MEDS: CEFAZOLIN IV 1,000 MG in DEXTROSE 5% 50ML 50 ML IV SCH (18:08)
[2016-11-17] MEDS: KETOROLAC TROMETHAMINE 30 MG/ML VIAL IV. PRN (18:16)
[2016-11-17] MEDS ORDERED: OXYCODONE HCL 10 MG TABCR (OXYCONTIN) PO SCH (21:00)
[2016-11-17] MEDS ORDERED: SENNA 8.6 MG TAB PO SCH (21:00)
[2016-11-17] MEDS: DOCUSATE SODIUM 100 MG CAP PO SCH (21:09)
[2016-11-17] MEDS: ASPIRIN 81 MG ECTAB PO SCH (21:09)
[2016-11-18] MEDS: CEFAZOLIN IV 1,000 MG in DEXTROSE 5% 50ML 50 ML IV SCH (01:52)
[2016-11-18] MEDS: KETOROLAC TROMETHAMINE 30 MG/ML VIAL IV. PRN (03:48)
[2016-11-18 03:52] VITALS: BP 116/67; PULSE 82; TEMP 36.6; O2SAT 98
[2016-11-18 05:59] LABS: HEMATOCRIT 33.5 % (37-47); MEAN CELL VOLUME 83.8 fL (80-100); MEAN CORPUSCULAR HGB CONC 32.2 g/dl (32-36); MEAN PLATELET VOLUME 10.2 fL (7.4-10.4); PLATELET COUNT 251 K/uL (130-400); WHITE BLOOD COUNT 13.86 K/uL (4.8-10.8)
[2016-11-18] MEDS: ACETAMINOPHEN 500 MG TAB PO SCH (06:05)
[2016-11-18 06:06] LABS: PROTHROMBIN TIME (PATIENT) 10.7 SECONDS (9.0-12.0)
[2016-11-18 06:30] LABS: BUN/CREATININE RATIO 15.8 (10-20); CALCIUM 8.7 mg/dl (8.5-10.1); CREATININE 0.74 mg/dl (0.60-1.20); POTASSIUM 4.6 mmol/L (3.5-5.1)
[2016-11-18] MEDS: CHECK SCOPOLAMINE PATCH PLACEMENT SCH (08:01)
[2016-11-18 08:14] VITALS: BP 134/86; PULSE 78; TEMP 37; O2SAT 97
[2016-11-18] MEDS ORDERED: NURSING VERBAL MED ORDER ONE (08:15)
--- NOTE | 2016-11-18 08:21 | Anesthesiology Progress Note ---
Anesthesia Post Op Note Date & Time Nov 18, 2016 at 08:20 Vital Signs Vital Signs Past 12 Hours Date Time Temp Pulse Resp B/P (MAP) Pulse Ox O2 Delivery O2 Flow Rate FiO2 11/18/16 08:14 37.0 78 18 134/86 (102) 97 Room Air 11/18/16 07:05 Room Air 11/18/16 03:52 36.6 82 18 116/67 (83) 98 Room Air 11/17/16 23:11 36.7 93 16 138/79 (98) 97 Room Air 11/17/16 21:00 Room Air Notes Mental Status: alert / awake / arousable, participated in evaluation Pt Amnestic to Procedure: Yes Nausea / Vomiting: adequately controlled Pain: adequately controlled Airway Patency, RR, SpO2: stable & adequate BP & HR: stable & adequate Hydration State: stable & adequate Neuraxial Anesthesia: sensory block resolved Anesthetic Complications: no major complications apparent
--- NOTE | 2016-11-18 08:38 | Discharge Instructions ---
Discharge Instructions Date of Service Nov 18, 2016. Admission Reason for Admission: Right Knee Osteoarthritis Discharge Discharge Diagnosis / Problem: Right Knee Djd Discharge Goals Goal(s): Decrease discomfort, Improve function Activity Recommendations Activity Limitations: per Instructions/Follow-up section Weightbearing Status: Right weightbearing (as tolerated) . Instructions / Follow-Up Instructions / Follow-Up ACTIVITY RECOMMENDATIONS: SELF CARE INSTRUCTIONS AFTER TOTAL KNEE REPLACEMENT A. You may need to continue a physical therapy program after discharge from the hospital. There are several options available to you. Your doctor will assist you in selecting the best one for you. 1. An out-patient facility 2 to 3 times a week for therapy or home therapy. 2. Continue working on all exercises taught to you in the hospital. Your goals should be to increase bending of your knee to 90 degrees and beyond and to fully straighten your knee. B. You may progress at your own pace from walking with a walker or crutches to a cane; then to no assistive devices. C. Make walking a part of your daily routine. Be up as much as comfortable with rest periods throughout the day. Rest with leg elevation is very important. Use the ice wrap frequently for the first 3-4 weeks. D. There are no restrictions on activities. You may ride in a car, shop, participate in child support officer and all social activities. E. Wear the long elastic stockings (VIKTOR hose) 20 hours a day for 2 weeks after surgery. They can be removed several times a day for laundering and for a bath. F. You may shower, no tub baths until cleared by your doctor. SPECIAL CARE INSTRUCTIONS: VERY IMPORTANT TO READ AND REVIEW A. There are a few signs you need to watch for after you are home. Call [facility] if you notice any of the followin. Increased severe knee pain. Some pain is expected especially when you exercise. 2. Increased swelling in your leg or knee; pain or swelling of the calf muscle in either lower leg. 3. Any fluid drainage from the incision. 4. Shortness of breath or chest pain. B. Please call [facility] at if you have any concerns or questions about your operation or recovery. The doctor or his nurse will return your call promptly. C. You must take antibiotics before dental work, bladder, bowel or other surgery. Your doctor will provide you with a permanent care to carry describing this precaution. IMPORTANT: * REMEMBER TO TAKE ASPIRIN, 81 MG, TWICE DAILY FOR 4 WEEKS UNLESS OTHERWISE DIRECTED. THIS IS YOUR BLOOD THINNER. * HIGH RISK PATIENTS MAY BE PRESCRIBED A STRONGER BLOOD THINNER. THIS WILL BE PROVIDED AT DISCHARGE. * CALL IF INCREASED PAIN, REDNESS, DRAINAGE OR FEVER GREATER THAT 101. * WEAR VIKTOR HOSE 20 HOURS PER DAY FOR 2 WEEKS. * DERMABOND Prineo- This is a mesh tape dressing that is covered with glue. It should remain in place until the incision is properly healed, usually 10-14 days. This dressing is designed to naturally slough off. You may trim the excess mesh tape as it peels off. Incision may be briefly wet in a shower. Dry immediately by blotting with a clean, dry towel. Do not bath or swim until instructed by your doctor. Do not scratch, rub, or pick at the dressing. Do not apply any topical ointments or lotions until dressing is completely removed and/or instructed by your doctor. There may be a small piece of suture material at one end of your incision. Do not pull or trim this. If it is bothersome or catching on clothing, you may cover it with a band-aid. . FOLLOW UP VISIT: If appointment is not already scheduled: Please call [facility] to make a follow-up appointment for 2 weeks after your surgery at . Current Hospital Diet Patient's current hospital diet: Regular Diet Discharge Diet Recommended Diet: Regular Diet Procedures Procedures Performed: Right total knee arthroplasty [facility] journey to patient-matched O neuroplasty size 2 femur to tibia 13 poly-29 oval patella Pending Studies Studies pending at discharge: no Laboratory Results Hemoglobin A1c Test 10/14/16 10:37 Range/Units Estimated Average Glucose 120 mg/dl Hemoglobin A1c 5.8 H 4.5-5.6 % Medical Emergencies . Who to Call and When: Medical Emergencies: If at any time you feel your situation is an emergency, please call 911 immediately. . Non-Emergent Contact Non-Emergency issues call your: Surgeon Call Non-Emergent contact if: temperature is above 101.5, your pain is not controlled, your pain is worsening, wound has increased drainage, wound has increased redness . "Provider Documentation" section prepared by Yvan Rae. . VTE Core Measure Inpt VTE Proph given/why not?: Other Anticoagulation, T.E.DFrederic Stockings, SCD's [place] Drug Monitoring Program Search Results: patient reviewed within database, no issues identified
[2016-11-18] MEDS ORDERED: CLB200 PO (08:40)
[2016-11-18] MEDS ORDERED: ASPEC81 PO (08:40)
[2016-11-18] MEDS ORDERED: ACET-24 PO (08:40)
[2016-11-18] MEDS ORDERED: HYDR-4079 PO (08:40)
[2016-11-18] MEDS ORDERED: SNK PO (08:40)
[2016-11-18] MEDS: DOCUSATE SODIUM 100 MG CAP PO SCH (08:43)
[2016-11-18] MEDS: ASPIRIN 81 MG ECTAB PO SCH (08:43)
[2016-11-18] MEDS: LORAZEPAM 1 MG TAB PO SCH (08:45)
--- NOTE | 2016-11-18 08:55 | Orthopedic Progress Note ---
Orthopedic Progress Note Date of Service Nov 18, 2016. Subjective Post OP Day: 1 Reports: feeling well, pain controlled w PO medications, Denies: chest pain, SOB , nausea / vomiting, light headedness, calf pain Objective calves soft nontender, N/V intact, dressing C/D/I, A&O x3, toes mobile, hemovac drainage (100ml) Date Time Temp Pulse Resp B/P (MAP) Pulse Ox O2 Delivery O2 Flow Rate FiO2 11/18/16 08:14 37.0 78 18 134/86 (102) 97 Room Air 11/18/16 07:05 Room Air 11/18/16 03:52 36.6 82 18 116/67 (83) 98 Room Air 11/17/16 23:11 36.7 93 16 138/79 (98) 97 Room Air 11/17/16 21:00 Room Air 11/17/16 20:00 36.6 96 16 119/80 (93) 96 Room Air 11/17/16 15:40 36.6 88 16 131/89 (103) 97 Room Air 11/17/16 14:40 82 16 131/86 (101) 98 Room Air 11/17/16 13:38 68 16 111/77 (88) 97 Room Air 11/17/16 13:30 97 Room Air 11/17/16 13:10 80 16 126/82 (97) 97 Room Air 11/17/16 12:46 98 Nasal Cannula 2.0 11/17/16 12:15 67 16 106/76 98 Nasal Cannula 2 11/17/16 12:05 36.6 67 16 109/75 98 Nasal Cannula 2 11/17/16 11:55 36.6 74 16 116/71 98 Nasal Cannula 2 11/17/16 11:45 74 16 110/69 98 Nasal Cannula 2 11/17/16 11:35 80 16 116/74 100 Nasal Cannula 2 11/17/16 11:26 36.5 83 16 109/69 100 Nasal Cannula 2 Laboratory Results 24 Hours: Test 11/18/16 05:07 Hematocrit 33.5 % Hemoglobin 10.8 g/dL Prothromb Time International Ratio 1.0 Prothrombin Time 10.7 SECONDS Assessment & Plan Assessment: POD 1 Right TKA Inhouse Planning Pain Management: Toradol, [place], Morphine DVT Prophylaxis: TEDs, SCDs, ASA Discharge Planning Discharge Planning: home with oppt Pain Management: Celebrex, [place] DVT Prophylaxis: TEDs, ASA Therapy: Physical Therapy
[2016-11-18] MEDS ORDERED: PANTOprazole SOD 40 MG TAB PO SCH (09:00)
[2016-11-18] MEDS ORDERED: TURMERIC PO SCH (09:00)
[2016-11-18] MEDS ORDERED: MULTIVITAMIN TAB PO SCH (09:00)
[2016-11-18 09:39] VITALS: O2SAT 97
[2016-11-18 11:41] VITALS: BP 130/86; PULSE 82; TEMP 37; O2SAT 99
[2016-11-18 12:04] VITALS: BP 130/86; PULSE 82; TEMP 37; O2SAT 99
[2016-11-18] MEDS ORDERED: MORP-157 PO (12:11)
--- NOTE | 2016-11-18 19:20 | Discharge Summary ---
Orthopedic Discharge Summary Admission Date/Reason Nov 17, 2016 at 11:35 Right Knee Osteoarthritis. Discharge Date/Disposition Nov 18, 2016 Home Diagnosis Principal Diagnosis: Right Knee Osteoarthritis Procedure(s) Performed Right total knee arthroplasty [facility] journey to patient-matched arthroplasty size 2 femur to tibia 13 poly-29 oval patella Consultations NONE Medication Reconciliation New Medications: Morphine Cont Rel (Ms Contin) 15 Mg Tab 15 MG PO Q12, #20 TAB Aspirin (Aspirin EC Low Dose) 81 Mg Ectab 81 MG PO BID for 30 Days Celecoxib (Celebrex) 200 Mg Cap 200 MG PO BID, #60 CAP Hydrocodone/Acetaminophen 10MG/325MG ([place] 10MG/325MG) Tab 1-2 TAB PO Q6 PRN for Pain, #60 TAB PRN PAIN Senna (Senna Lax) 8.6 Mg Tab 17.2 MG PO HS, #30 TAB Continued Medications: Cholecalciferol (Vitamin D3) 1,000 Unit Tab 2 TAB PO QAM, TAB Fish Oil ([place]-3) 1 Ea Cap 2 CAP PO DAILY, CAP Lorazepam (Ativan) 1 Mg Tab 1-2 TAB PO TID, TAB PRN FOR MARTINEZ Multivitamin (Multivitamin) Tab 2 TAB PO QAM, TAB Prednisone (Prednisone) 20 Mg Tab 20 MG PO UD, TAB UD FOR SEVERE MARTINEZ - may take 1-2 tab as directed Sumatriptan Succinate (Imitrex) 100 Mg Tab 100 MG PO PRN, TAB Turmeric (Curcuma Longa) (Turmeric) 500 Mg Tab 2 TAB PO DAILY Discontinued Medications: Hydrocodone/Acetaminophen 5MG/325MG ([place] 5MG/325MG) Tab 1 TABLET PO Q6 PRN for Pain, TAB PRN PAIN Meloxicam (Meloxicam) 15 Mg Tab 1 TAB PO daily Admission Physical Exam As per Admitting History & Physical. Hospital Course Patient was a same day admission after undergoing a successful right TKA. she tolerated the procedure well. Post-operatively, her activity was progressed and well tolerated. Please refer to daily progress notes and PT notes for complete details. After exam on 11/18/16, patient felt to be stable for discharge home with OPPT. Patient will f/u in the office in 2 weeks for further evaluation including x-rays and incision check, sooner if having any issues or concerns. Below are pertinent labs/studies during their hospital stay: Last Vital Signs Documentation Date Time Temp Pulse Resp B/P (MAP) Pulse Ox O2 Delivery O2 Flow Rate FiO2 11/18/16 12:04 37.0 82 16 99 Room Air 11/18/16 11:41 130/86 (101) 11/17/16 12:46 2.0 Test 11/18/16 05:07 Range/Units White Blood Count 13.86 4.8-10.8 K/uL Red Blood Count 4.00 4.2-5.4 M/uL Hemoglobin 10.8 12.0-16.0 g/dL Hematocrit 33.5 37-47 % Mean Corpuscular Volume 83.8 80-100 fL Mean Corpuscular Hemoglobin 27.0 25-34 pg Mean Corpuscular Hemoglobin Concent 32.2 32-36 g/dl RDW Standard Deviation 43.3 36.4-46.3 fL RDW Coefficient of Variation 14.1 11.5-14.5 % Platelet Count 251 130-400 K/uL Mean Platelet Volume 10.2 7.4-10.4 fL Prothrombin Time 10.7 9.0-12.0 SECONDS Prothromb Time International Ratio 1.0 0.9-1.1 Sodium Level 141 136-145 mmol/L Potassium Level 4.6 3.5-5.1 mmol/L Chloride Level 109 98-107 mmol/L Carbon Dioxide Level 26 21-32 mmol/L Anion Gap 6.0 3-11 mmol/L Blood Urea Nitrogen 12 7-18 mg/dl Creatinine 0.74 0.60-1.20 mg/dl Est Creatinine Clear Calc Drug Dose 67.2 ml/min Estimated GFR () 99.2 Estimated GFR (Non- 85.6 BUN/Creatinine Ratio 15.8 10-20 Random Glucose 166 70-99 mg/dl Calcium Level 8.7 8.5-10.1 mg/dl Discharge Instructions ACTIVITY RECOMMENDATIONS: SELF CARE INSTRUCTIONS AFTER TOTAL KNEE REPLACEMENT A. You may need to continue a physical therapy program after discharge from the hospital. There are several options available to you. Your doctor will assist you in selecting the best one for you. 1. An out-patient facility 2 to 3 times a week for therapy or home therapy. 2. Continue working on all exercises taught to you in the hospital. Your goals should be to increase bending of your knee to 90 degrees and beyond and to fully straighten your knee. B. You may progress at your own pace from walking with a walker or crutches to a cane; then to no assistive devices. C. Make walking a part of your daily routine. Be up as much as comfortable with rest periods throughout the day. Rest with leg elevation is very important. Use the ice wrap frequently for the first 3-4 weeks. D. There are no restrictions on activities. You may ride in a car, shop, participate in motion picture set grip and all social activities. E. Wear the long elastic stockings (VIKTOR hose) 20 hours a day for 2 weeks after surgery. They can be removed several times a day for laundering and for a bath. F. You may shower, no tub baths until cleared by your doctor. SPECIAL CARE INSTRUCTIONS: VERY IMPORTANT TO READ AND REVIEW A. There are a few signs you need to watch for after you are home. Call [facility] if you notice any of the followin. Increased severe knee pain. Some pain is expected especially when you exercise. 2. Increased swelling in your leg or knee; pain or swelling of the calf muscle in either lower leg. 3. Any fluid drainage from the incision. 4. Shortness of breath or chest pain. B. Please call [facility] at if you have any concerns or questions about your operation or recovery. The doctor or his nurse will return your call promptly. C. You must take antibiotics before dental work, bladder, bowel or other surgery. Your doctor will provide you with a permanent care to carry describing this precaution. IMPORTANT: * REMEMBER TO TAKE ASPIRIN, 81 MG, TWICE DAILY FOR 4 WEEKS UNLESS OTHERWISE DIRECTED. THIS IS YOUR BLOOD THINNER. * HIGH RISK PATIENTS MAY BE PRESCRIBED A STRONGER BLOOD THINNER. THIS WILL BE PROVIDED AT DISCHARGE. * CALL IF INCREASED PAIN, REDNESS, DRAINAGE OR FEVER GREATER THAT 101. * WEAR VIKTOR HOSE 20 HOURS PER DAY FOR 2 WEEKS. * DERMABOND Prineo- This is a mesh tape dressing that is covered with glue. It should remain in place until the incision is properly healed, usually 10-14 days. This dressing is designed to naturally slough off. You may trim the excess mesh tape as it peels off. Incision may be briefly wet in a shower. Dry immediately by blotting with a clean, dry towel. Do not bath or swim until instructed by your doctor. Do not scratch, rub, or pick at the dressing. Do not apply any topical ointments or lotions until dressing is completely removed and/or instructed by your doctor. There may be a small piece of suture material at one end of your incision. Do not pull or trim this. If it is bothersome or catching on clothing, you may cover it with a band-aid. FOLLOW UP VISIT: If appointment is not already scheduled: Please call [facility] to make a follow-up appointment for 2 weeks after your surgery at .
[2016-11-18] MEDS ORDERED: CeleBREX 200 MG CAP PO SCH (21:00)
== END 2016-11-18 13:56 | disposition home or self-care (01) | DRG 470 ==
LOC: C.ACU 07:19 → C.3E 11:35 → ENRESERV 11:50
PROVIDERS: ADMIT Orthopaedic Surgery; ATTEND Orthopaedic Surgery
PROC: 0SRC0J9 Replacement of Right Knee Joint with Synthetic Substitute, Cemented, Open Approach (ICD-10-PCS; principal; 2016-11-17 09:15)
DX: M17.11 Unilateral primary osteoarthritis, right knee (principal); M25.861 Other specified joint disorders, right knee; Z79.899 Other long term (current) drug therapy

== ENCOUNTER 2017-02-03 11:13 | Emergency (ER) | payer OTHER ==
[~2017-02-03] VITALS: Ht 172.7 cm; Wt 66.1 kg
[~2017-02-03 11:13] MED LIST changes: -ACETAMINOPHEN 500 MG TAB PO SCH; +ASPEC81 PO; -BUPIVACAINE 0.5 % 5 MG/1 ML PF 10ML VIAL ONE; -CEFAZOLIN 2000 MG/60 ML D5W 60 ML IV SCH; +CLB200 PO; -CeleBREX 200 MG CAP PO SCH; -DEXAMETHASONE 4 MG TAB PO SCH; -FAMOTIDINE 20 MG TAB PO SCH; -GABAPENTIN 300 MG CAP PO SCH; +HYDR-4079 PO; -LACTATED RINGER'S 1000ML 1,000 ML IV SCH; -LACTATED RINGER'S 1000ML 500 ML IV ONE; -MELO15TA4 PO; -METOCLOPRAMIDE HCL 10 MG TAB PO SCH; +MORP-157 PO; -ROPIVACAINE 5MG/ML 30 ML 150 MG, BUPIVACAINE/EPINEPHR 0.5% MPF 30 ML, KETOROLAC TROMETH... INFIL SCH; +SNK PO
[2017-02-03 11:19] VITALS: TEMP 36.7; Ht 172.7 cm; Wt 66.1 kg
[2017-02-03] MEDS ORDERED: TRAM-10 PO (11:47)
[2017-02-03] MEDS ORDERED: NF656 TD (11:47)
[2017-02-03] MEDS ORDERED: SODIUM CHLORIDE 0.9% 1000ML 1,000 ML IV STA (12:45)
[2017-02-03 12:55] LABS: COMPLETE YES; HEMATOCRIT 40.9 % (37-47); IG% 0.6 %; LYMPH % 24.1 %; LYMPH ABS # 0.85 K/uL (1.2-3.4); MEAN CELL VOLUME 81.2 fL (80-100); MEAN CORPUSCULAR HEMOGLOBIN 27.2 pg (25-34); MEAN CORPUSCULAR HGB CONC 33.5 g/dl (32-36); MEAN PLATELET VOLUME 10.7 fL (7.4-10.4); MONO % 6.5 %; NEUT % 64.8 %; PLATELET COUNT 244 K/uL (130-400); RED BLOOD COUNT 5.04 M/uL (4.2-5.4); WHITE BLOOD COUNT 3.53 K/uL (4.8-10.8)
[2017-02-03 13:03] LABS: BUN/CREATININE RATIO 21.4 (10-20); CALCIUM 8.8 mg/dl (8.5-10.1); CREATININE 0.67 mg/dl (0.60-1.20); POTASSIUM 3.9 mmol/L (3.5-5.1)
--- NOTE | 2017-02-03 13:33 | DIAGNOSTIC IMAGING REPORT ---
CHEST ONE VIEW PORTABLE HISTORY: 66 years-old Female ABDOMINAL PAIN/GI acute generalized abdominal pain. COMPARISON: Chest radiograph 04/22/2016 TECHNIQUE: Portable upright AP view of the chest FINDINGS: The cardiomediastinal and hilar silhouettes are within normal limits. There is atherosclerosis of the aorta. No pneumothorax, pleural effusion, focal airspace consolidation or overt pulmonary edema. The bones of the chest are grossly intact. Mild degenerative changes involve the shoulders. IMPRESSION: No acute cardiopulmonary process. The above report was generated using voice recognition software. It may contain grammatical, syntax or spelling errors. Electronically signed by: Terrence Shane M.D. 02/03/2017 1:31 PM Dictated Date/Time: 02/03/2017 1:30 PM
[2017-02-03 14:42] VITALS: BP 173/100; PULSE 70; O2SAT 99
[2017-02-03 14:57] LABS: URINE APPEARANCE CLEAR (CLEAR); URINE BILIRUBIN NEG (NEG); URINE COLOR YELLOW; URINE NITRITE NEG (NEG); URINE SPECIFIC GRAVITY 1.012 (1.000-1.030); UROBILINOGEN NEG (NEG); ZZUR CULT IF INDIC CLEAN CATCH NO
[2017-02-03 15:09] LABS: MANUAL MICROSCOPIC REQUIRED? NO; REVIEW REQ? NO
--- NOTE | 2017-02-03 15:32 | DIAGNOSTIC IMAGING REPORT ---
ABD/PELVIS WITHOUT FOR STONE HISTORY: 66 years-old Female rt flank pain acute right-sided flank pain. Initial exam. COMPARISON: None available TECHNIQUE: Multiple axial CT images of the abdomen and pelvis were obtained without contrast. A dose lowering technique was used consistent with the principals of CORRIE. FINDINGS: The lung bases are generally clear. No pneumoperitoneum. Imaged inferior cardiac chambers are unremarkable. The liver, spleen, pancreas, gallbladder and adrenal glands are unremarkable. 2 mm nonobstructing calculus is seen within the superior pole right kidney. There is a 1.6 cm low attenuating lesion of the interpolar right kidney seen on image 128, nonspecific however suggesting a cyst. There is a 2 mm calcification noted along the dependent aspect of this lesion seen on image 132 of series 3 suggesting calcification within a cyst or alternatively a nonobstructing calculus. There is mild dilation of the right ureter compared to the left without obstructing stone or mass identified. No significant hydronephrosis. Phleboliths are seen within the pelvis. Uterus and adnexa are unremarkable. The abdominal aorta is normal in course and caliber. No bulky adenopathy. Small sliding-type hiatal hernia. No bowel obstruction or focal bowel wall thickening. The appendix is air-filled and appears normal. Soft tissues are unremarkable. Severe facet arthrosis involves the lower lumbar spine. There is 4 mm anterolisthesis L4 on L5 likely secondary to long-standing facet disease. IMPRESSION: 1. Mild dilation of the right ureter is noted without significant hydronephrosis, obstructing stone or mass. Findings may be secondary to ascending infection or recently passed stone. 2. 2 mm nonobstructing calculus of the superior pole right kidney. Probable cyst of the interpolar right kidney with adjacent 2 mm calcification suggesting calcification within a cyst or adjacent nonobstructing calculus. 3. Normal appendix. 4. Small sliding-type hiatal hernia. The above report was generated using voice recognition software. It may contain grammatical, syntax or spelling errors. Electronically signed by: Terrence Shane M.D. 02/03/2017 3:31 PM Dictated Date/Time: 02/03/2017 3:20 PM
--- NOTE | 2017-02-03 15:46 | EMERGENCY ROOM VISIT NOTE ---
History Report prepared by Alesha: Ethan Sanchez Under the Supervision of: Dr. Live Nelson D.O. First contact with patient: 12:30 Chief Complaint: ABDOMINAL PAIN Stated Complaint: BACK AND STOMACH PAIN, HEADACHE Nursing Triage Summary: Pt complaints of right back/flank pain. Pain has further progressed to right RUQ and epigastric area. Nausea. Has been eating very little. Has gallbladder. History of Present Illness The patient is a 66 year old female who presents to the Emergency Room with complaints of right flank pain that began 1 week ago. She rates her pain a 2/10 in severity. Her back pain radiates across her back. Last night, her pain started in her RLQ abdomen. Her pain is exacerbated with movement and deep inhalation. She is also experiencing epigastric pain and nausea. She denies any past abdominal surgeries or medical problems. She denies any fevers, vomiting, or abnormal urinary symptoms. She denies any shortness of breath or leg swelling. Source of History: patient Onset: 1 week ago Position: back (right flank pain) Symptom Intensity: 2/10 Quality: sharp Timing: constant Modifying Factors (Worsening): breathing, movement Associated Symptoms: + nausea, + abdominal pain, No fevers, No SOB, No vomiting, No urinary symptoms Review of Systems See HPI for pertinent positives & negatives. A total of 10 systems reviewed and were otherwise negative. Past Medical & Surgical Surgical Problems: (1) Post-operative state (2) S/P TKR (total knee replacement) Family History Omitted secondary to the patient's age. Social History Smoking Status: Current Every Day Smoker Smokeless Tobacco Use: Yes Drug Use: none Marital Status: Housing Status: lives with family Current/Historical Medications Scheduled Cholecalciferol (Vitamin D3), 2,000 UNITS PO QAM Fish Oil ([place]-3), 2 CAP PO DAILY Multivitamin (Multivitamin), 2 TAB PO QAM Sumatriptan Succinate (Imitrex), 100 MG PO PRN Scheduled PRN Lidocaine (Lidoderm Patch 5%), 1 PATCH TD UD PRN for Pain Tramadol (Ultram), 50 MG PO UD PRN for Pain Allergies Coded Allergies: Escitalopram (Verified Allergy, Intermediate, icthy, 02/03/17) Oxycodone (Verified Allergy, Intermediate, GI SYMPTOMS, 02/03/17) Codeine (Verified Adverse Reaction, Intermediate, N/V, 02/03/17) Physical Exam Vital Signs Date Time Temp Pulse Resp B/P (MAP) Pulse Ox O2 Delivery O2 Flow Rate FiO2 02/03/17 14:42 70 14 173/100 99 Room Air 02/03/17 13:05 75 18 164/95 02/03/17 12:21 72 02/03/17 11:19 36.7 82 18 164/97 100 Room Air Physical Exam CONSTITUTIONAL/VITAL SIGNS: Reviewed / noted above. GENERAL: Non-toxic in appearance. INTEGUMENTARY: Warm, dry, and [place]. HEAD: Normocephalic. EYES: without scleral icterus or trauma. ENT/OROPHARYNX: clear and moist. LYMPHADENOPATHY/NECK: Is supple without lymphadenopathy or meningismus. RESPIRATORY: Lungs clear and equal. CARDIOVASCULAR: Regular rate and rhythm. GI/ABDOMEN: Soft and nontender. No organomegaly or pulsatile mass. No rebound or guarding. Normal bowel sounds. EXTREMITIES: Warm and well perfused. BACK: Mild right sided CVA tenderness. NEUROLOGICAL: Intact without focal deficits. PSYCHIATRIC: normal affect. MUSCULOSKELETAL: Normally developed with good muscle tone. Medical Decision & Procedures ER Provider Diagnostic Interpretation: Radiology results as stated below per my review and radiologist interpretation: CHEST ONE VIEW PORTABLE HISTORY: 66 years-old Female ABDOMINAL PAIN/GI acute generalized abdominal pain. COMPARISON: Chest radiograph 04/22/2016 TECHNIQUE: Portable upright AP view of the chest FINDINGS: The cardiomediastinal and hilar silhouettes are within normal limits. There is atherosclerosis of the aorta. No pneumothorax, pleural effusion, focal airspace consolidation or overt pulmonary edema. The bones of the chest are grossly intact. Mild degenerative changes involve the shoulders. IMPRESSION: No acute cardiopulmonary process. The above report was generated using voice recognition software. It may contain grammatical, syntax or spelling errors. Electronically signed by: Terrence Shane M.D. 02/03/2017 1:31 PM Dictated Date/Time: 02/03/2017 1:30 PM ABD/PELVIS WITHOUT FOR STONE HISTORY: 66 years-old Female rt flank pain acute right-sided flank pain. Initial exam. COMPARISON: None available TECHNIQUE: Multiple axial CT images of the abdomen and pelvis were obtained without contrast. A dose lowering technique was used consistent with the principals of CORRIE. FINDINGS: The lung bases are generally clear. No pneumoperitoneum. Imaged inferior cardiac chambers are unremarkable. The liver, spleen, pancreas, gallbladder and adrenal glands are unremarkable. 2 mm nonobstructing calculus is seen within the superior pole right kidney. There is a 1.6 cm low attenuating lesion of the interpolar right kidney seen on image 128, nonspecific however suggesting a cyst. There is a 2 mm calcification noted along the dependent aspect of this lesion seen on image 132 of series 3 suggesting calcification within a cyst or alternatively a nonobstructing calculus. There is mild dilation of the right ureter compared to the left without obstructing stone or mass identified. No significant hydronephrosis. Phleboliths are seen within the pelvis. Uterus and adnexa are unremarkable. The abdominal aorta is normal in course and caliber. No bulky adenopathy. Small sliding-type hiatal hernia. No bowel obstruction or focal bowel wall thickening. The appendix is air-filled and appears normal. Soft tissues are unremarkable. Severe facet arthrosis involves the lower lumbar spine. There is 4 mm anterolisthesis L4 on L5 likely secondary to long-standing facet disease. IMPRESSION: 1. Mild dilation of the right ureter is noted without significant hydronephrosis, obstructing stone or mass. Findings may be secondary to ascending infection or recently passed stone. 2. 2 mm nonobstructing calculus of the superior pole right kidney. Probable cyst of the interpolar right kidney with adjacent 2 mm calcification suggesting calcification within a cyst or adjacent nonobstructing calculus. 3. Normal appendix. 4. Small sliding-type hiatal hernia. The above report was generated using voice recognition software. It may contain grammatical, syntax or spelling errors. Electronically signed by: Terrence Shane M.D. 02/03/2017 3:31 PM Dictated Date/Time: 02/03/2017 3:20 PM Laboratory Results 02/03/17 11:35 Red Blood Count 5.04, Mean Corpuscular Volume 81.2, Mean Corpuscular Hemoglobin 27.2, Mean Corpuscular Hemoglobin Concent 33.5, Mean Platelet Volume 10.7, Neutrophils (%) (Auto) 64.8, Lymphocytes (%) (Auto) 24.1, Monocytes (%) (Auto) 6.5, Eosinophils (%) (Auto) 4.0, Basophils (%) (Auto) 0.0, Neutrophils # (Auto) 2.29, Lymphocytes # (Auto) 0.85, Monocytes # (Auto) 0.23, Eosinophils # (Auto) 0.14, Basophils # (Auto) 0.00 Test 02/03/17 11:35 02/03/17 14:30 02/03/17 15:27 White Blood Count 3.53 K/uL (4.8-10.8) Red Blood Count 5.04 M/uL (4.2-5.4) Hemoglobin 13.7 g/dL (12.0-16.0) Hematocrit 40.9 % (37-47) Mean Corpuscular Volume 81.2 fL (80-100) Mean Corpuscular Hemoglobin 27.2 pg (25-34) Mean Corpuscular Hemoglobin Concent 33.5 g/dl (32-36) Platelet Count 244 K/uL (130-400) Mean Platelet Volume 10.7 fL (7.4-10.4) Neutrophils (%) (Auto) 64.8 % Lymphocytes (%) (Auto) 24.1 % Monocytes (%) (Auto) 6.5 % Eosinophils (%) (Auto) 4.0 % Basophils (%) (Auto) 0.0 % Neutrophils # (Auto) 2.29 K/uL (1.4-6.5) Lymphocytes # (Auto) 0.85 K/uL (1.2-3.4) Monocytes # (Auto) 0.23 K/uL (0.11-0.59) Eosinophils # (Auto) 0.14 K/uL (0-0.5) Basophils # (Auto) 0.00 K/uL (0-0.2) RDW Standard Deviation 42.3 fL (36.4-46.3) RDW Coefficient of Variation 14.2 % (11.5-14.5) Immature Granulocyte % (Auto) 0.6 % Immature Granulocyte # (Auto) 0.02 K/uL (0.00-0.02) Est Creatinine Clear Calc Drug Dose 85.5 ml/min Total Bilirubin 0.4 mg/dl (0.2-1) Direct Bilirubin 0.1 mg/dl (0-0.2) Aspartate Amino Transf (AST/SGOT) 23 U/L (15-37) Alanine Aminotransferase (ALT/SGPT) 28 U/L (12-78) Alkaline Phosphatase 84 U/L (45-117) Total Protein 7.6 gm/dl (6.4-8.2) Albumin 4.0 gm/dl (3.4-5.0) Lipase 201 U/L (73-393) Urine Color YELLOW Urine Appearance CLEAR (CLEAR) Urine pH 7.0 (4.5-7.5) Urine Specific [place] 1.012 (1.000-1.030) Urine Protein NEG (NEG) Urine Glucose (UA) NEG (NEG) Urine Ketones NEG (NEG) Urine Occult Blood TRACE (NEG) Urine Nitrite NEG (NEG) Urine Bilirubin NEG (NEG) Urine Urobilinogen NEG (NEG) Urine Leukocyte Esterase NEG (NEG) Urine WBC (Auto) 1-5 /hpf (0-5) Urine RBC (Auto) 5-10 /hpf (0-4) Urine Hyaline Casts (Auto) 0 /lpf (0-5) Urine Epithelial Cells (Auto) 10-20 /lpf (0-5) Urine Bacteria (Auto) NEG (NEG) Laboratory results as stated above per my review. Medications Administered Medications (Trade) Dose Ordered Sig/[place] Route Start Time Stop Time Status Last Admin Dose Admin Sodium Chloride 1,000 ml @ 999 mls/hr Q1H1M STAT IV 02/03/17 12:45 02/03/17 13:45 DC 02/03/17 12:58 999 MLS/HR ECG Indication: abdominal pain Rate (beats per minute): 76 Rhythm: normal sinus Findings: no acute ischemic change, no ectopy ED Course 1230: Previous medical records were reviewed. The patient was evaluated in room B5. A complete history and physical examination was performed. 1245: Sodium Chloride 1000 ml @ 999 mls/hr IV 1548: On reevaluation, the patient is resting. I discussed the results and findings with the patient. She verbalized agreement of the treatment plan. She was discharged home. Medical Decision Differential considered: pancreatitis, hepatitis, or acute cholecystitis, AAA, UTI, pyelonephritis, kidney stones, appendicitis, diverticulitis, shingles, bowel obstruction mesenteric ischemia, intussusception,hernia, ovarian torsion, ruptured ovarian cyst. This is a 66-year-old female who presents to the ED with a chief complaint of right-sided back spasms the been occurring intermittently for the past week. She states that it occurred last night and she had some right-sided abdominal pain as well. The patient states that it seems to be worse with movements and sometimes deep breathing. She also reported some hunger pains in the epigastric area for the past week. She denies any urinary symptoms. No fevers. A little nausea but no vomiting. She has been eating okay. Exam reveals normal vital signs. Exam was otherwise unremarkable. She had some mild right CVA tenderness. CBC and PRP are unremarkable. LFTs and lipase are normal. Chest x-ray did not show acute disease. Urine did not show infection. CT scan of the abdomen and pelvis reveals a mild dilatation of the right ureter that could be related to a recently passed stone. The patient was told the results. She did not want any medication. She is felt to be stable for discharge. Medication Reconcilliation Current Medication List: was personally reviewed by me Blood Pressure Screening Patient's blood pressure: Elevated blood pressure Blood pressure disposition: Elevated BP felt to be situational Impression Primary Impression: Rt flank pain Scribe Attestation The scribe's documentation has been prepared under my direction and personally reviewed by me in its entirety. I confirm that the note above accurately reflects all work, treatment, procedures, and medical decision making performed by me. Departure Information Dispostion Home / Self-Care Referrals Elyse Mccarthy M.D. (PCP) Forms Call Back Authorization, HOME CARE DOCUMENTATION FORM, IMPORTANT VISIT INFORMATION Patient Instructions My [facility] Additional Instructions Follow-up with your doctor for further care and evaluation in 1-2 days. Return to the emergency department for worsening or new symptoms or any concerns. You have been examined and treated today on an emergency basis only. This is not a substitute for, or an effort to provide, complete comprehensive medical care. It is impossible to recognize and treat all injuries or illnesses in a single emergency department visit. It is therefore important that you follow up closely with your doctor. Call as soon as possible for an appointment.
[2017-02-03 16:04] LABS: BUN/CREATININE RATIO 16.8 (10-20); CALCIUM 8.7 mg/dl (8.5-10.1); CREATININE 0.57 mg/dl (0.60-1.20); POTASSIUM 3.4 mmol/L (3.5-5.1)
== END 2017-02-03 16:16 | disposition home or self-care (01) ==
LOC: C.EDB 11:14
DX: R10.9 Unspecified abdominal pain (principal); N20.0 Calculus of kidney; F17.200 Nicotine dependence, unspecified, uncomplicated

== ENCOUNTER → 2017-05-24 | Outpatient (CLI) | payer OTHER ==
[~2017-05-24] MED LIST changes: -ASPEC81 PO; -ATV/1 PO; -CLB200 PO; -HYDR-4079 PO; -MORP-157 PO; +NF656 TD; -PRED20TA PO; -SNK PO; +TRAM-10 PO; -TURM500T PO
--- NOTE | 2017-05-25 15:40 | MAMMOGRAPHY REPORT ---
BILATERAL DIGITAL SCREENING MAMMOGRAM TOMOSYNTHESIS WITH CAD: 05/24/2017 CLINICAL HISTORY: Routine screening. TECHNIQUE: Breast tomosynthesis in addition to standard 2D mammography was performed. Current study was also evaluated with a Computer Aided Detection (CAD) system. COMPARISON: Comparison is made to exams dated: 04/07/2016 mammogram - [facility], , 10/10/2006, and 10/10/2006. BREAST COMPOSITION: The tissue of both breasts is heterogeneously dense, which may obscure small mas ses. FINDINGS: The parenchymal pattern is similar to prior mammograms. There are scattered stable benign rim and punctate microcalcifications. No developing mass, architectural distortion or cluster of fleming spicious microcalcifications is seen in either breast. IMPRESSION: ACR BI-RADS CATEGORY 2: BENIGN There is no mammographic evidence of malignancy. A 1 year screening mammogram is recommended. The pa tient will receive written notification of the results. Approximately 10% of breast cancers are not detected with mammography. A negative mammographic report should not delay biopsy if a clinically suggestive mass is present. Dede Fregoso M.D. ay/:05/24/2017 15:34:34 Nursing Secretary: Dung CHOI(Marcela)(Linda), [facility] letter sent: Normal 1/2 BI-RADS Code: ACR BI-RADS Category 2: Benign
== END | disposition home or self-care (01) ==
LOC: C.MAMM 09:29
PROVIDERS: ATTEND Internal Medicine
DX: Z12.31 Encounter for screening mammogram for malignant neoplasm of breast (principal)

== ENCOUNTER → 2017-09-08 | Outpatient (CLI) | payer OTHER | END | disposition home or self-care (01) | LOC: C.PATHSPEC 16:59 | PROVIDERS: ATTEND Dermatology | DX: L91.8 Other hypertrophic disorders of the skin (principal); D23.5 Other benign neoplasm of skin of trunk ==